=== PATIENT | female | born 1980 | race Hispanic/Latino ===

== ENCOUNTER → 2017-07-07 | Day surgery (SDC) | payer BC ==
[~2017-07-07] MED LIST: CEFAZOLIN SOD 1 GM VIAL ONE; DEXAMETHASONE SOD PHOS INJ 4 MG/ML VIAL ONE; ESMOLOL HCL 100MG/10ML 10 MG/ML VIAL ONE; FENTANYL CITRATE/PF 100MCG/2 ML INJ ONE; GLYCOPYRROLATE INJ 1MG/ 5 ML SYR ONE; LIDOCAINE 1% W/EPINEPHRINE 20 ML VIAL ONE; LIDOCAINE HCL 2% LOCAL INJ 5 ML SDV VIAL INJ ONE; MIDAZOLAM HCL 2 MG/2 ML VIAL ONE; MUPIROCIN 2% OINT 22 GM TUBE ONE; NEOSTIGMINE 5 MG/5ML SYR ONE; ONDANSETRON HCL INJ 2 MG/ML VIAL ONE; PROPOFOL IV EMULSION 10 MG/ML 20 ML VIAL ONE; ROCURONIUM BROMIDE 10 MG/ML 5ML VIAL ONE; SEVOFLURANE INHAL SOLN 250 ML PEN BTL ONE
--- OUTSIDE RECORDS SUMMARY | 2017-07-07 06:21 | XMS REPORT | Summary of Care ---
Author Author Shan Jeffery M.A. Organization Unknown Address [facility] Phone Unavailable Care Team Providers Care [employer] Designer Name Role Phone Shan Jeffery M.A. Unavailable Unavailable SHANITA BARRIOS M.D. 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 * Quantity: 240 Refills: 0 SHANITA BARRIOS M.D. * Start : 12-Jun-2017 Active Allergies and Adverse Reactions Name Dates Details No Known Drug Allergies (Allergy) Status: Active Procedures Procedure Dates Details Procedures not documented Immunization Name Dates Details Immunizations not documented Family History Name Dates Details Family history of high cholesterol (V18.19, Z83.42) Status: Active Family history of hypertension (V17.49, Z82.49) Status: Active Family history of diabetes mellitus (V18.0, Z83.3) Status: Active Name Dates Details Family history of depression (V17.0, Z81.8) Status: Active Social History Name Dates Details - Status: Name Dates Details Never smoker Vital Signs Date Test Result Details [id number] BP Systolic 102 mm[Hg] Status: Comments: Location: LUE; Position: Sitting BP Diastolic 66 mm[Hg] Status: Comments: Location: LUE; Position: Sitting Weight 140 lb Status: Height 62 in Status: Body Mass Index Calculated 25.61 kg/m2 Status: Body Surface Area Calculated 1.64 m2 Status: Temperature 97.4 f Status: Comments: Method: Temporal Respiration Rate 16 /min Status: Heart Rate 71 /min Status: Results Date Description Value Details [id number] Tobacco Use Screening Completed DONE Plan of Care Name Dates Details Planned Observations Planned Goals not documented Instructions Name Dates Details Instructions not documented Encounters Appointment; SHANITA BARRIOS M.D. Encounter Diagnosis: Problem not documented On: 12-Jun-2017 10:00
--- NOTE | 2017-07-07 10:30 | Operative Report ---
DATE OF PROCEDURE: July 07, 2017 PREOPERATIVE DIAGNOSIS: Soft tissue mass, left temporal parietal scalp, 7-8 cm long. POSTOPERATIVE DIAGNOSIS: Sebaceous cyst, left temporal parietal scalp. PROCEDURE: Excision of sebaceous cyst, left temporal parietal scalp. ANESTHESIA: General. HISTORY: The patient is a 36-year-old female with a long-standing history of an enlarging soft tissue mass on the left temporal parietal scalp. The risks, benefits and alternatives of treatment were discussed with the patient. She is prepared to undergo the procedures outlined. DETAILS OF PROCEDURE: The patient was marked preoperatively in the holding area. She was brought to the operating theater, and after the induction of adequate general anesthesia, she was prepped and draped in a supine position. A time out was performed. A curvilinear incision was marked out about the central aspect of the mass in a horizontal plane. The incision was then infiltrated with 1% Xylocaine with epinephrine. The incision was made through the skin and subcutaneous tissues. Bleeding was controlled using the electrocautery. Immediately in the subcutaneous plane, there was a large fluctuant mass, which appears to be well encapsulated. Starting from anterior to the posterior scalp, the mass was then dissected from the undersurface of the subcutaneous tissues. On the deep side, the mass was elevated off of the temporal fascia. During the dissection, the first anterior third of the undersurface of the mass of the temporal artery is encountered. Because of its dense adherence to the mass, it is ligated between clamps and tied with 4-0 Vicryl sutures. At this point, the dissection continued posteriorly to the postauricular area where the mass was then completely excised and sent for permanent pathologic examination. The wound was irrigated with bacteriostatic saline. There is redundant skin and subcutaneous tissues, and this was judiciously excised with scissors in order to prevent redundancy in the area. At this point, the skin was closed in layers utilizing 4-0 Vicryl in an interrupted buried fashion followed by a 5-0 Monocryl running subcuticular stitch. Steri-Strips were applied, and then a sterile bulking conforming bandage was applied to place gentle compression on the area and prevent seroma formation. Patient was returned to the recovery room in satisfactory condition, and discharged with a postoperative instruction sheet, as well as a followup appointment. Estimated blood loss for the procedure was 20-25 mL. Job#: [id number] RI
== END | disposition home or self-care (01) ==
LOC: OR 06:19
PROVIDERS: ATTEND Plastic Surgery
DX: L72.3 Sebaceous cyst (principal); Z87.01 Personal history of pneumonia (recurrent)
CPT/HCPCS: 11446; 12052; 81025; 88304; J0690; J1100; J2001; J2250; J2405